=== PATIENT | male | born 1965 | race Caucasian/White ===

== ENCOUNTER → 2018-11-04 | Outpatient (CLI) | payer BC | END | disposition home or self-care (01) | LOC: LABWHC1 13:49 | PROVIDERS: ATTEND Internal Medicine | DX: Z13.9 Encounter for screening, unspecified (principal); B01.9 Varicella without complication; B06.9 Rubella without complication; B05.9 Measles without complication; B26.9 Mumps without complication | CPT/HCPCS: 36415; 86735; 86762; 86765; 86787 ==